=== PATIENT | female | born 1975 | race Caucasian/White ===

== ENCOUNTER 2021-12-26 17:30 | Emergency (ER) | payer OTHER, SELFPAY ==
--- NOTE | ~2021-12-26 | XR_ITS ---
EXAM: XR foot LT min 3V HISTORY: stubbed left 2cnd and 3rd toes last night COMPARISON: 11/01/2013. FINDINGS: Normal mineralization. Mild hallux valgus. Prominent and fused os navicularis. Plantar and calcaneal enthesopathy. Oblique nondisplaced fracture of the third proximal phalange, with possible intra-articular extension to the third PIP. No other fracture. No dislocation. IMPRESSION: Nondisplaced oblique fracture of the mid and distal third proximal phalange, with possible intra-matthias cular extension. Reviewed, dictated and finalized at location K. IMPRESSION: Nondisplaced oblique fracture of the mid and distal third proximal phalange, wi th possible intra-articular extension.
--- NOTE | 2021-12-26 17:35 | ED.GENADULT ---
HPI - General Adult General Chief complaint: Extremity Injury, Lower Stated complaint: lt foot injury Time Seen by Provider: 12/26/21 17:35 Source: patient Mode of arrival: ambulatory Limitations: no limitations History of Present Illness HPI narrative: 46-year-old female patient presents to the [facility] with complaints of left third toe pain. Patient states that she accidentally hit a metal barstool and jammed her toe. Patient states that it was originally dislocated and she straightened it out yesterday. Patient states she has been icing it and taking Tylenol and ibuprofen and hoa taping it. Patient denies any numbness or tingling. Related Data Home Medications Medication Instructions Recorded Confirmed levothyroxine 150 mcg PO DAILY 12/26/21 12/26/21 liraglutide [Victoza 2-Myron] 18 mg SUBCUT DIRECTED 12/26/21 12/26/21 metformin 1,000 mg PO DAILY 12/26/21 12/26/21 Allergies Allergy/AdvReac Type Severity Reaction Status Date / Time No Known Allergies Allergy Verified 12/26/21 17:51 Review of Systems Review of Systems: CONSTITUTIONAL: Denies fever, chills, or sweats. EYES: Denies visual changes, redness, or discharge. ENT: Denies rhinorrhea, congestion, sore throat, or otalgia. CARDIOVASCULAR: Denies chest pain, palpitations, or edema. RESPIRATORY: Denies cough or dyspnea. GASTROINTESTINAL: Denies abdominal pain, nausea, vomiting, or diarrhea. GENITOURINARY: Denies dysuria or hematuria. SKIN: Denies rash or itching. MUSCULOSKELETAL: Denies back pain, joint pain, or myalgia. Positive left third toe pain NEUROLOGIC: Denies headache, numbness, or weakness. PSYCHIATRIC: Denies anxiety or depression. [facility] Past Medical History Medical History (Updated 12/26/21 @ 17:51 by BELA Ramirez) Hypothyroidism PCOS (polycystic ovarian syndrome) Seasonal allergies Type 2 diabetes mellitus Comments At the time of my signature I agree with nursing past medical history, surgical, social, and family history. There is no relevant family history pertinent to the presenting complaint. Exam Narrative: GENERAL: Well-appearing, well-nourished, and in no acute distress. HEAD: Normocephalic, atraumatic. EYES: PERRLA and EOMI. ENT: Nares clear, no rhinorrhea or epistaxis. Mucous membranes moist. NECK: Supple. No lymphadenopathy CHEST: Clear to auscultation. No respiratory distress. HEART: Regular rate and rhythm. No murmur heard. Normal peripheral pulses. ABDOMEN: Soft, nontender, nondistended, normal active bowel sounds. EXTREMITIES: Normal range of motion. No edema. Patient has bruising and swelling noted to the left third toe. There is tenderness on palpation. 2+ DP pulses noted on palpation. SKIN: Warm, dry, no rash. NEURO: No focal deficits. Alert and oriented x3. Course Course Level of Care: Express Care Visit Reevaluation(s) Reevaluation #1: Reevaluated patient notified her that her third toe is fractured. Discussed with her we will go ahead and hoa tape the toes and fit her for a postop shoe. She will need to follow-up with her primary doctor or orthopedic doctor as needed. Discussed with her that she may want to talk to them about possibly getting an orthopedic boot especially if she walks a lot for her job. I would also recommend elevating is much as possible and icing it to help decrease inflammation. Patient can take Tylenol ibuprofen as needed for pain. Date: 12/26/21 Time: 18:30 Vital Signs Vital signs: Vital Signs Temperature 36.8 C 12/26/21 17:47 Pulse Rate 99 12/26/21 17:47 Respiratory Rate 18 12/26/21 17:47 Blood Pressure 149/82 H 12/26/21 17:47 Pulse Oximetry 100 12/26/21 17:47 Temperature 36.8 C 12/26/21 17:47 Pulse Rate 99 12/26/21 17:47 Respiratory Rate 18 12/26/21 17:47 Blood Pressure 149/82 H 12/26/21 17:47 Pulse Oximetry 100 12/26/21 17:47 Vital signs reviewed The patient has been informed that they may have pre-hypertension or Hypertension
[2021-12-26 17:47] VITALS: BP 149/82; PULSE 99; RESP 18; TEMP 36.8; O2SAT 100
== END 2021-12-26 18:36 | disposition home or self-care (01) ==
PROVIDERS: Emergency Provider Nurse Practitioner Family
DX: S92.515A Nondisplaced fracture of proximal phalanx of left lesser toe(s), initial encounter for closed fracture (principal); W22.8XXA Striking against or struck by other objects, initial encounter; E03.9 Hypothyroidism, unspecified; E28.2 Polycystic ovarian syndrome; E11.9 Type 2 diabetes mellitus without complications
CPT/HCPCS: 73630; 99213; 99214; G0463